=== PATIENT | male | born 1990 | race Caucasian/White ===

== ENCOUNTER 2017-08-24 17:00 | Emergency (ER) | payer SELFPAY ==
[2017-08-24 17:24] VITALS: BP 129/76; PULSE 88; RESP 16; TEMP 99.8
[2017-08-24] MEDS ORDERED: ACETAMINOPHEN TAB 500 MG TAB PO STA (17:30)
[2017-08-24] MEDS ORDERED: AMOXICILLIN 500MG STARTER PACK 3 CAP BTL PO STA (18:35)
--- NOTE | 2017-08-24 18:37 | ED ---
ENT HPI - General Chief complaint: ENT Stated complaint: sore throat Time Seen by Provider: 08/24/17 18:31 Source: patient, RN notes reviewed, old records reviewed Mode of arrival: ambulatory Limitations: no limitations - History of Present Illness Initial comments: This patient is a 26 year old male with CC of sorethroat, fever. Patient reports it has been going on for one week, worse over the past day. Reports pain with swallowing. He reports he gets strep frequently. - Related Data Previous Rx's Medication Instructions Recorded Amoxicillin 500 mg PO Q8H #30 capsule 08/24/17 Allergies Allergy/AdvReac Type Severity Reaction Status Date / Time No Known Allergies Allergy Verified 08/24/17 17:24 Review of Systems ROS Statement: Those systems with pertinent positive or pertinent negative responses have been documented in the HPI. ROS Other: All systems not noted in ROS Statement are negative. Past Medical History Past Medical History: No Reported History History of Any Multi-Drug Resistant Organisms: None Reported Past Surgical History: Adenoidectomy, Appendectomy Past Anesthesia/Blood Transfusion Reactions: No Reported Reaction Past Psychological History: No Psychological Hx Reported Smoking Status: Never smoker Past Alcohol Use History: Occasional Past Drug Use History: None Reported General Exam - General Exam Comments Initial Comments: This patient is a well appearing 26 year old male, no distress. Limitations: no limitations General appearance: alert, in no apparent distress Head exam: Present: atraumatic, normocephalic, normal inspection Eye exam: Present: normal appearance, PERRL, EOMI. Absent: scleral icterus, conjunctival injection, periorbital swelling ENT exam: Present: normal exam, mucous membranes moist. Absent: normal oropharynx (Pharyngeal erythema, no abscess. ) Neck exam: Present: normal inspection. Absent: tenderness, meningismus, lymphadenopathy Respiratory exam: Present: normal lung sounds bilaterally. Absent: respiratory distress, wheezes, rales, rhonchi, stridor Cardiovascular Exam: Present: regular rate, normal rhythm, normal heart sounds. Absent: systolic murmur, diastolic murmur, rubs, gallop, clicks GI/Abdominal exam: Present: soft, normal bowel sounds. Absent: distended, tenderness, guarding, rebound, rigid Neurological exam: Present: alert, oriented X3, CN II-XII intact Psychiatric exam: Present: normal affect, normal mood Course Vital Signs 08/24/17 17:21 Temperature 99.8 F H Pulse Rate 88 Respiratory 16 Rate Blood Pressure 129/76 O2 Sat by Pulse 100 Oximetry Medical Decision Making - Medical Decision Making 26 year old male with sore throat and fever for one week. Patient has positive Rapid Strep. No evidence of abscess. Given tylenol and amoxicillin starter pack. Discussed PCP follow up and return parameters discussed. - Lab Data Lab Results 08/24/17 Range/Units 17:30 Group A Strep Rapid Positive A (Negative) Disposition Clinical Impression: Strep pharyngitis Disposition: HOME SELF-CARE Condition: Good Instructions: Strep Throat (ED) Additional Instructions: He is alternate Motrin and Tylenol. Take antibiotics as prescribed. Return to emergency department if any alarming signs or symptoms occur. Prescriptions: Amoxicillin 500 mg PO Q8H #30 capsule Is patient prescribed a controlled substance at d/c from ED?: No When asked, does pt state using other controlled substances?: No If prescribed controlled substance>3 days was MAPS reviewed?: No If opioid is for acute pain is fill amount 7 days or less?: No If Rx opioid, was Start Talking consent form obtained?: No Referrals: None,Stated [Primary Care Provider] - 1-2 days Terra Dominguez MD [STAFF PHYSICIAN] - 1-2 days Time of Disposition: 18:36
== END 2017-08-24 18:49 | disposition home or self-care (01) ==
LOC: EC 17:00
DX: J02.0 Streptococcal pharyngitis (principal)
CPT/HCPCS: 87430; 99283

== ENCOUNTER 2021-11-26 19:27 | Emergency (ER) | payer BC, OTHER ==
[2021-11-26 19:31] VITALS: TEMP 98.6
--- NOTE | 2021-11-26 19:43 | ED ---
Extremity Problem HPI - General Chief complaint: Skin/Abscess/Foreign Body Stated complaint: L leg issues Time Seen by Provider: 11/26/21 19:32 Source: patient, RN notes reviewed Mode of arrival: ambulatory Limitations: no limitations - History of Present Illness Initial comments: This is a pleasant 31-year-old male who presents to the emergency department complaining of a sore, reddened area to the medial aspect of his left thigh. Patient went to urgent care yesterday and was treated with antibiotics. Patient has been taking these antibodies for 2 days, total of 5 doses, not improving. Note that the patient has been sitting more than usual since he is in class right now. Patient also has had some long periods of immobilization and automobiles. No shortness of breath or chest pain. No family history of blood clots. No headache, no fever or chills, no changes in vision or hearing, no sore throat or difficulty with speech, no neck pain, no chest pain or shortness of breath, no abdominal pain, no nausea or vomiting, no changes in urination or bowel movements, no numbness or tingling, no skin rashes or lesions. Past medical, surgical, social, and family history reviewed. MD Complaint: extremity pain, extremity swelling - Related Data Previous Rx's Medication Instructions Recorded Amoxicillin 500 mg PO Q8H #30 capsule 08/24/17 Apixaban [Eliquis Starter Pack 5 - 10 mg PO DIRECTED 30 Days 11/26/21 (for VTE)] #1 each Allergies Allergy/AdvReac Type Severity Reaction Status Date / Time No Known Allergies Allergy Verified 11/26/21 19:31 Review of Systems ROS Statement: Those systems with pertinent positive or pertinent negative responses have been documented in the HPI. ROS Other: All systems not noted in ROS Statement are negative. Past Medical History Past Medical History: No Reported History History of Any Multi-Drug Resistant Organisms: None Reported Past Surgical History: Adenoidectomy, Appendectomy Past Anesthesia/Blood Transfusion Reactions: No Reported Reaction Past Psychological History: No Psychological Hx Reported Smoking Status: Vaper Past Alcohol Use History: Occasional Past Drug Use History: None Reported General Exam Limitations: no limitations General appearance: alert, in no apparent distress Head exam: Present: atraumatic, normocephalic, normal inspection Eye exam: Present: normal appearance, PERRL, EOMI. Absent: scleral icterus, conjunctival injection, periorbital swelling ENT exam: Present: normal exam, mucous membranes moist, normal external ear exam Neck exam: Present: normal inspection, full ROM. Absent: tenderness, menin gismus, lymphadenopathy Respiratory exam: Present: normal lung sounds bilaterally. Absent: respiratory distress, wheezes, rales, rhonchi, stridor, accessory muscle use Cardiovascular Exam: Present: regular rate, normal rhythm, normal heart sounds. Absent: systolic murmur, diastolic murmur, rubs, gallop, clicks GI/Abdominal exam: Present: soft. Absent: distended, tenderness, guarding, rebound, rigid Extremities exam: Present: full ROM, tenderness (Medial aspect of left thigh), normal capillary refill, other (Negative Homans sign). Absent: pedal edema, joint swelling, calf tenderness Left Hip exam: Present: normal inspection, full ROM. Absent: tenderness Upper Leg exam: Present: tenderness (Medial aspect), swelling (Minimal), erythe ma (Mild erythema with palpable cord noted). Absent: abrasion, laceration, ecchymosis, deformity, crepitus, dislocation Knee exam: Present: normal inspection, full ROM. Absent: tenderness Lower Leg exam: Present: normal inspection. Absent: tenderness, swelling, palpable cord, Homans' sign Ankle exam: Present: normal inspection, full ROM. Absent: tenderness Foot/Toe exam: Present: normal inspection, full ROM. Absent: tenderness Neurovascular tendon exam: Present: no vascular compromise. Absent: pulse deficit, abnormal cap refill, motor deficit, sensory deficit, tendon deficit, extremity cold to touch, pallor, decreased fine/light touch, foot drop, peroneal nerve deficit Gait: observed and normal Back exam: Present: normal inspection Neurological exam: Present: alert, oriented X3, CN II-XII intact Psychiatric exam: Present: normal affect, normal mood Skin exam: Present: warm, dry, intact, normal color. Absent: rash Course Vital Signs 11/26/21 11/26/21 19:29 21:03 Temperature 98.6 F 98.6 F Pulse Rate 61 62 Respiratory 18 16 Rate Blood Pressure 145/86 130/91 O2 Sat by Pulse 97 Oximetry Medical Decision Making - Medical Decision Making Given the patient's presentation, superficial thrombophlebitis versus DVT within the differential. Relegated to the medial aspect of left thigh. Patient has had increased immobilization recently due to taking classes and being in vehicles. Patient's venous Doppler showed a superficial thrombosis in the greater saphenous vein. However, this was within 1 cm of the deep system, most elevated, femoral vein. Received a call from the biodiesel production technician about this. Discussed the case with ED attending physician. Patient will be treated like a DVT with Eliqius. Patient given follow-up with vascular surgery. Eliquis starter pack ordered. The case was discussed in detail with ED attending physician. Presentation, findings, treatment plan discussed in detail. Quality Improvement Coordinator Dr. Bradley - Lab Data Result diagrams: 11/26/21 19:53 11/26/21 19:53 Lab Results 11/26/21 11/26/21 Range/Units 19:53 19:53 WBC 8.1 (3.8-10.6) k/uL RBC 4.44 (4.30-5.90) m/uL Hgb 14.0 (13.0-17.5) gm/dL Hct 40.7 (39.0-53.0) % MCV 91.6 (80.0-100.0) fL MCH 31.5 (25.0-35.0) pg MCHC 34.4 (31.0-37.0) g/dL RDW 12.8 (11.5-15.5) % Plt Count 274 (150-450) k/uL MPV 7.9 Neutrophils % 58 % Lymphocytes % 29 % Monocytes % 7 % Eosinophils % 4 % Basophils % 0 % Neutrophils # 4.7 (1.3-7.7) k/uL Lymphocytes # 2.3 (1.0-4.8) k/uL Monocytes # 0.6 (0-1.0) k/uL Eosinophils # 0.3 (0-0.7) k/uL Basophils # 0.0 (0-0.2) k/uL Sodium 139 (137-145) mmol/L Potassium 4.1 (3.5-5.1) mmol/L Chloride 101 (98-107) mmol/L Carbon Dioxide 26 (22-30) mmol/L Anion Gap 12 mmol/L BUN 14 (9-20) mg/dL Creatinine 1.02 (0.66-1.25) mg/dL Est GFR (CKD-EPI)AfAm >90 (>60 ml/min/1.73 sqM) Est GFR (CKD-EPI)NonAf >90 (>60 ml/min/1.73 sqM) Glucose 85 (74-99) mg/dL Calcium 9.7 (8.4-10.2) mg/dL Total Bilirubin 0.4 (0.2-1.3) mg/dL AST 26 (17-59) U/L ALT 16 (4-49) U/L Alkaline Phosphatase 69 (38-126) U/L Total Protein 7.1 (6.3-8.2) g/dL Albumin 4.5 (3.5-5.0) g/dL Disposition Clinical Impression: Superficial thrombophlebitis of left leg Narrative: Superficial thrombus within 1 cm of the common femoral vein will be treated as a DVT with follow-up with vascular surgery Disposition: HOME SELF-CARE Condition: Good Instructions (If sedation given, give patient instructions): Superficial Thrombophlebitis (ED) Additional Instructions: Elevation, warm compresses 4 times daily for 10-15 minutes at a time. Follow up with the vascular surgeon and your regular doctor. Eliquis 10 mg twice daily for 7 days then 5 mg twice daily thereafter Follow-up with your regular physician as directed. Return to the ER immediately if any symptoms worsen, new symptoms arise, or any other problems develop. Prescriptions: Apixaban [Eliquis Starter Pack (for VTE)] 5 - 10 mg PO DIRECTED 30 Days #1 each Is patient prescribed a controlled substance at d/c from ED?: No Referrals: Constantin Laruent MD [Primary Care Provider] - 1-2 days Lux Dang DO [STAFF PHYSICIAN] - 11/29/21 Time of Disposition: 20:53
[2021-11-26 20:11] LABS: Basophils % (A) 0 %; Eosinophils # (A) 0.3 k/uL (0-0.7); Eosinophils % (A) 4 %; HCT 40.7 % (39.0-53.0); Lymphocytes # (A) 2.3 k/uL (1.0-4.8); Lymphocytes % (A) 29 %; MCH 31.5 pg (25.0-35.0); MCHC 34.4 g/dL (31.0-37.0); MCV 91.6 fL (80.0-100.0); Mean Platelet Volume 7.9; Monocytes # (A) 0.6 k/uL (0-1.0); Monocytes % (A) 7 %; Neutrophils # (A) 4.7 k/uL (1.3-7.7); Neutrophils % (A) 58 %; Platelet Count 274 k/uL (150-450); RBC 4.44 m/uL (4.30-5.90); RDW 12.8 % (11.5-15.5); WBC 8.1 k/uL (3.8-10.6)
[2021-11-26 20:22] LABS: ALT 16 U/L (4-49); AST 26 U/L (17-59); African American GFR (CKD) >90 (>60 ml/min/1.73 sqM); Albumin 4.5 g/dL (3.5-5.0); Alkaline Phosphatase 69 U/L (38-126); Anion Gap 12 mmol/L; Blood Urea Nitrogen 14 mg/dL (9-20); Calcium 9.7 mg/dL (8.4-10.2); Carbon Dioxide 26 mmol/L (22-30); Chloride 101 mmol/L (98-107); Glucose 85 mg/dL (74-99); Non-African American GFR(CKD) >90 (>60 ml/min/1.73 sqM); Potassium 4.1 mmol/L (3.5-5.1); Sodium 139 mmol/L (137-145); Total Bilirubin 0.4 mg/dL (0.2-1.3); Total Protein 7.1 g/dL (6.3-8.2)
--- NOTE | 2021-11-26 20:32 | US ---
EXAMINATION TYPE: US venous doppler duplex LE LT DATE OF EXAM: 11/26/2021 8:25 PM COMPARISON: NONE CLINICAL HISTORY: Left leg pain with erythema and palpable cord. No hx of DVT. Patient does not take blood thinners. Left leg pain x 4 days. Erythema and palpable cord at distal medial left thigh. SIDE PERFORMED: Left TECHNIQUE: The lower extremity deep venous system is examined utilizing real time linear array sonog shannan with graded compression, doppler sonography and color-flow sonography. VESSELS IMAGED: Common Femoral Vein Deep Femoral Vein Greater Saphenous Vein * Femoral Vein Popliteal Vein Small Saphenous Vein * Proximal Calf Veins (* superficial vessels) Left Leg: Internal echoes seen within the GSV at 0.87 cm from CFV junction. This vein and its branch es do not appear to compress and show little to no color flow. No evidence of thrombus within remaining vessels imaged. Compressions deferred in the groin- upper thigh due to echoes seen. Duplicate femoral vein noted. IMPRESSION: There is some superficial vein thrombus in the long saphenous vein. No evidence of deep vein thrombosis in the left leg.
[2021-11-26] MEDS ORDERED: APIXABAN 5 MG TAB PO STA (20:50)
[2021-11-26 21:05] VITALS: BP 130/91; PULSE 62; RESP 16
== END 2021-11-26 21:10 | disposition home or self-care (01) ==
LOC: EC 19:27
DX: I80.02 Phlebitis and thrombophlebitis of superficial vessels of left lower extremity (principal); F17.290 Nicotine dependence, other tobacco product, uncomplicated
CPT/HCPCS: 36415; 80053; 85025; 99283